=== PATIENT | female | born 1985 | race Two or more races ===

== ENCOUNTER 2017-10-04 06:22 | Emergency (ER) | payer MEDICAID ==
[~2017-10-04] VITALS: Ht 165.1 cm; Wt 81.6 kg
[2017-10-04 07:19] VITALS: BP 140/85
[2017-10-04] MEDS ORDERED: LIDOCAINE 1% HCL (LOCAL ANESTH.) INJ 20ML MDV ID ONE (07:30)
[2017-10-04] MEDS ORDERED: BACITRACIN TOP OINT 1 UD PKG TOP ONE (07:30)
== END 2017-10-04 08:25 | disposition home or self-care (01) ==
LOC: ER 06:27
DX: S61.511A Laceration without foreign body of right wrist, initial encounter (principal); X58.XXXA Exposure to other specified factors, initial encounter; Y93.89 Activity, other specified; Y99.8 Other external cause status; Y92.89 Other specified places as the place of occurrence of the external cause
CPT/HCPCS: 12002; 99283; J2001